=== PATIENT | female | born 1955 | race African-American/Black ===

== ENCOUNTER 2017-04-17 04:16 | Emergency (ER) | payer SELFPAY ==
[~2017-04-17] VITALS: Ht 167.6 cm; Wt 137.0 kg
[2017-04-17] MEDS ORDERED: SODIUM CHLORIDE 0.9% 1,000 ML IV ONE (06:16)
[2017-04-17] MEDS ORDERED: ONDANSETRON HCL 4MG/2ML VIAL IV ONE (06:30)
[2017-04-17 06:47] LABS: BASOPHILS % 1.4 % (0.0-2.0); EOSINOPHILS % 2.2 % (0.0-5.0); HEMATOCRIT. 42.4 % (36.0-48.0); HEMOGLOBIN. 14.2 g/dL (12.0-16.0); LYMPHOCYTES % 36.7 % (20.0-50.0); MEAN CORPUSCULAR HEMOGLOBIN 27.4 pg (28.0-32.0); MEAN CORPUSCULAR VOLUME 81.7 fL (81.0-99.0); MEAN PLATELET VOLUME 8.5 fl (7.4-10.4); NEUTROPHILS % 51.7 % (40.0-76.0); PLATELET 260 x1000/uL (130-400); RED BLOOD CELL COUNT 5.19 mill/uL (4.2-5.4); RED CELL DISTRIBUTION WIDTH 15.1 % (11.6-14.6)
[2017-04-17 06:59] LABS: CARBON DIOXIDE 28 mEq/L (21-32); CHLORIDE 103 mEq/L (98-107)
[2017-04-17 12:20] VITALS: BP 159/77
[2017-04-17] MEDS ORDERED: ACETAMINOPHEN 325MG TABLET PO ONE (15:45)
== END 2017-04-17 16:28 | disposition home or self-care (01) ==
LOC: ER 04:16
DX: R11.2 Nausea with vomiting, unspecified (principal); R19.7 Diarrhea, unspecified; I10 Essential (primary) hypertension; E78.00 Pure hypercholesterolemia, unspecified; M10.9 Gout, unspecified; E11.9 Type 2 diabetes mellitus without complications
CPT/HCPCS: 36415; 80053; 85025; 96374; 99284; J2405; J7030; Z7610